=== PATIENT | female | born 1975 | race Caucasian/White ===

== ENCOUNTER 2016-09-06 08:00 | Outpatient (CLI) | payer MEDICARE, MEDICAID | END 2016-09-06 08:01 | disposition home or self-care (01) | DX: E78.5 Hyperlipidemia, unspecified (principal); E11.9 Type 2 diabetes mellitus without complications ==

== ENCOUNTER 2016-10-18 14:18 | Outpatient (CLI) | payer MEDICARE, MEDICAID | END 2016-10-18 14:19 | disposition home or self-care (01) | DX: Z11.3 Encounter for screening for infections with a predominantly sexual mode of transmission (principal) | CPT/HCPCS: 36415; 86780; 87340; G0475 ==

== ENCOUNTER 2016-12-26 14:17 | Outpatient (CLI) | payer MEDICARE, MEDICAID | END 2016-12-26 23:59 | disposition home or self-care (01) | DX: E11.65 Type 2 diabetes mellitus with hyperglycemia (principal) ==

== ENCOUNTER 2017-03-03 11:52 | Outpatient (CLI) | payer MEDICARE, MEDICAID ==
--- NOTE | 2017-03-06 18:01 | Mammography Report ---
DIGITAL SCREENING MAMMOGRAM: 03/03/2017 CLINICAL INDICATION: A 41-year-old for screening. COMPARISON: 01/2008 TECHNIQUE: Routine CC and MLO projections were obtained of the breasts. FINDINGS: Scattered fibroglandular tissue is present within the breasts. There are no dominant mass es, suspicious microcalcifications, or secondary signs of malignancy. In comparison to the previous studies, there are no significant changes. ASSESSMENT: NO MAMMOGRAPHIC EVIDENCE OF MALIGNANCY. NO SIGNIFICANT INTERVAL CHANGES. RECOMMENDATION: Screening mammography is recommended annually. BIRADS category 1 - negative. STANDARD QUALIFYING STATEMENTS 1. This examination was reviewed with the aid of Computed-Aided Detection (CAD). 2. A negative or benign imaging report should not delay biopsy if clinically suspicious findings are present. Consider surgical consultation if warranted. More than 5% of cancers are not identified b y imaging. 3. Dense breasts may obscure an underlying neoplasm. JOB #: [id number] EXT JOB #:[id number]
== END 2017-03-03 11:53 | disposition home or self-care (01) ==
LOC: DI.N 11:52
PROVIDERS: ATTEND Nurse Practitioner Gerontology
DX: Z12.31 Encounter for screening mammogram for malignant neoplasm of breast (principal)
CPT/HCPCS: 77067

== ENCOUNTER 2017-04-05 14:04 | Outpatient (CLI) | payer MEDICARE, MEDICAID | END 2017-04-05 14:05 | LOC: LAB.R 14:04 | PROVIDERS: ATTEND Obstetrics & Gynecology | DX: B37.3 Candidiasis of vulva and vagina (principal) | CPT/HCPCS: 87480; 87491; 87510; 87591; 87660 ==

== ENCOUNTER 2017-04-17 09:46 | Outpatient (CLI) | payer MEDICARE, MEDICAID ==
[2017-04-17 17:45] LABS: HEMOGLOBIN A1C 0.98 g/dL
== END 2017-04-17 09:47 ==
LOC: LAB.N 09:46
PROVIDERS: ATTEND Nurse Practitioner Gerontology
DX: E11.65 Type 2 diabetes mellitus with hyperglycemia (principal)
CPT/HCPCS: 36415; 83036

== ENCOUNTER 2017-12-28 08:00 | Outpatient (CLI) | payer MEDICARE, MEDICAID ==
[2017-12-28 19:53] LABS: HB2 TOTAL 15.4 g/dL; HEMOGLOBIN A1C 1.12 g/dL; HEMOGLOBIN A1C % 8.8 % (4.6-6.2)
== END 2017-12-28 08:01 | disposition home or self-care (01) ==
LOC: LAB.N 08:00
PROVIDERS: ATTEND Obstetrics & Gynecology
DX: Z13.1 Encounter for screening for diabetes mellitus (principal); E11.9 Type 2 diabetes mellitus without complications
CPT/HCPCS: 36415; 83036

== ENCOUNTER 2018-03-23 14:53 | Outpatient (CLI) | payer MEDICARE, MEDICAID ==
--- NOTE | 2018-03-23 15:34 | XRAY Report ---
Procedure Date: 03/23/2018 Accession Number: [id number] / [id number] Procedure: XRN - Lumbar Spine 2 View CPT Code: FULL RESULT: EXAM: Lumbar Spine 2 View DATE: 03/23/2018 3:06 PM CLINICAL HISTORY: LEG PAIN COMPARISON: 08/04/2016. TECHNIQUE: 2 views. FINDINGS: Alignment: Normal. No spondylolisthesis or scoliosis. Bones: Five [id number]-[id number] lumbar vertebral bodies are present. No fractures or bone lesions. Mild endplate spurring. Disks: Mild degenerative changes with loss of disc space height, similar to 2016. Facets: No degenerative changes. Sacroiliac Joints: Unremarkable. Soft Tissues: Normal. The visualized bowel gas pattern is normal. IMPRESSION: Mild degenerative changes, similar to 2016. RADIA
== END 2018-03-23 14:54 | disposition home or self-care (01) ==
LOC: DI.N 14:53
PROVIDERS: ATTEND Nurse Practitioner
DX: M51.36 Other intervertebral disc degeneration, lumbar region (principal)
CPT/HCPCS: 72100

== ENCOUNTER 2019-08-03 11:30 | Outpatient (CLI) | payer MEDICARE ==
--- NOTE | 2019-08-05 10:53 | Ultrasound Report ---
Reason: CYSTOCELE W/INCOMPLETE UTERINE PROLAPSE Procedure Date: 08/03/2019 Accession Number: [id number] / [id number] Procedure: US - Pelvic w/Transvaginal CPT Code: Final Report FULL RESULT: EXAM: PELVIC ULTRASOUND EXAM DATE: 08/03/2019 12:16 PM. CLINICAL HISTORY: CYSTOCELE W/INCOMPLETE UTERINE PROLAPSE. 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 TECHNIQUE: Realtime transabdominal pelvic scan performed to identify the uterus and adnexa and as an overview of other pelvic structures, followed by transvaginal scan to provide greater detail of the uterus and adnexa, with static image documentation. FINDINGS: Uterus: 8.8 x 4.5 x 5.9 cm, volume 124 cc. Anteverted position. Normal overall size and echotexture. Masses: None. Probable anterior lower uterine segment section scar. Endometrium: 2 mm. Normal. Cervix: Probable small nabothian cysts. Right Ovary: 1.5 x 3.1 x 1.5 cm, volume 3.5 cc. Normal echotexture and blood flow. Left Ovary: 2.2 x 1.1 x 2.2 cm, volume 2.6 cc. Normal echotexture and blood flow. Free Fluid: Trace free pelvic fluid may be physiologic. Other: None. IMPRESSION: 1. Unremarkable uterus and ovaries. 2. Trace free pelvic fluid may be physiologic. RADIA
== END 2019-08-03 11:31 | disposition home or self-care (01) ==
LOC: DI 11:30
PROVIDERS: ATTEND Obstetrics & Gynecology
DX: N81.2 Incomplete uterovaginal prolapse (principal); N91.5 Oligomenorrhea, unspecified
CPT/HCPCS: 76830; 76856

== ENCOUNTER 2019-09-23 12:09 | Outpatient (CLI) | payer MEDICARE, MEDICAID ==
[2019-09-23 12:25] LABS: BASOPHILS % (AUTO) 0.7 %; EOSINOPHILS # (AUTO) 0.2 10^3/uL (0.0-0.7); HGB - HEMOGLOBIN 13.5 g/dL (12.0-16.0); LYMPHOCYTES # (AUTO) 1.9 10^3/uL (1.5-3.5); MEAN CORPUSCULAR HEMOGLOBIN 26.9 pg (27.0-31.0); MEAN CORPUSCULAR HGB CONC 32.1 g/dL (32.0-36.0); MEAN CORPUSCULAR VOLUME 83.8 fL (81.0-99.0); MEAN PLATELET VOLUME 9.3 fL (7.9-10.8); MONOCYTES # (AUTO) 0.4 10^3/uL (0.0-1.0); MONOCYTES % (AUTO) 6.1 %; NEUTROPHILS # (AUTO) 3.6 10^3/uL (1.5-6.6); NEUTROPHILS % (AUTO) 58.5 %; PLT - PLATELET COUNT 246 10^3/uL (130-450); RED BLOOD COUNT 5.01 10^6/uL (4.20-5.40); RED CELL DISTRIBUTION WIDTH 13.4 % (12.0-15.0); WHITE BLOOD COUNT 6.1 x10^3/uL (4.8-10.8)
[2019-09-23 12:47] LABS: ALBUMIN 4.1 g/dL (3.2-5.5); ALBUMIN/GLOBULIN RATIO 1.4 (1.0-2.2); BILIRUBIN,TOTAL 0.6 mg/dL (0.2-1.0); CALCIUM 8.8 mg/dL (8.5-10.3); CREATININE 0.7 mg/dL (0.4-1.0)
== END 2019-09-23 12:10 | disposition home or self-care (01) ==
LOC: LAB 12:09
PROVIDERS: ATTEND Obstetrics & Gynecology
DX: Z01.812 Encounter for preprocedural laboratory examination (principal); N91.5 Oligomenorrhea, unspecified; N81.2 Incomplete uterovaginal prolapse; E11.9 Type 2 diabetes mellitus without complications
CPT/HCPCS: 36415; 80053; 85025

== ENCOUNTER 2019-09-25 07:05 | Day surgery (SDC) | payer MEDICARE, MEDICAID ==
--- NOTE | 2019-09-23 11:58 | CONSULTATION NOTE ---
Consultation Report: Evaluated patient in preop clinic. Patient to have Hysterectomy with AP repair. She has a history of asthma, GERD, morbid obesity (BMI 44), borderline sleep apnea, untreated and DM 2. Her most recent A1C was 7 which is down from 8.5. Her asthma is well controlled on Breo. Discussed with patient her risk may be higher post-op due to untreated sleep apnea. If needed, we will treat her with CPAP post op if apnea becomes an issue. Otherwise, it is safe to proceed with surgery on Monday as planned. No anesthetic concerns.
[~2019-09-25 07:05] MED LIST: ACETAMINOPHEN 1,000 MG/100 ML 100 ML IV ONE; CELECOXIB 100 MG CAPSULE PO ONE; GABAPENTIN 400 MG CAPSULE ONE; LACTATED RINGERS 1,000 ML IV ONE
[2019-09-25 07:28] LABS: HCG UR QUAL NEGATIVE
[2019-09-25] MEDS ORDERED: VASOPRESSIN 20 UNIT/ML VIAL ONE (07:32)
[2019-09-25] MEDS ORDERED: LIDOCAINE 1%-EPI 1:100000 20 ML MDV ONE (07:32)
[2019-09-25] MEDS ORDERED: METHYLENE BLUE 0.5% 50 MG/10 ML AMPULE ONE (07:32)
[2019-09-25] MEDS ORDERED: ESTROGENS, CONJUGATED CREAM 30 GM TUBE ONE (07:35)
[2019-09-25] MEDS ORDERED: ceFAZolin 3 GM in SODIUM CHLORIDE 0.9% 100ML 100 ML IV ONE (08:00)
--- NOTE | 2019-09-25 08:03 | ANESTHESIA ---
Pre-Anesthesia VS, & Labs - Diagnosis Cystocele w/ incomplete uterine prolapse - Procedure Total vaginal hysterectomy Vital Signs: Temp Pulse Resp BP Pulse Ox 36.5 C 77 16 136/81 H 96 09/25/19 07:17 09/25/19 07:17 09/25/19 07:17 09/25/19 07:17 09/25/19 07:17 Height 5 ft 6 in Weight (kg) 121 kg Body Mass Index 44.3 - NPO >8 hours - Is Patient ?: Yes, No - Lab Results Current Lab Results: Laboratory Tests 09/25/19 07:30: POC Whole Bld Glucose 113 H Lab results reviewed: Yes Home Medications and Allergies Active Medications Cefazolin Sodium 3 gm/ Sodium (Chloride) 100 mls @ 200 mls/hr IV ONCE ONE Stop: 09/25/19 08:29 Albuterol [Proventil Hfa] 1 puffs INH Q4-6H PRN 04/16/13 Minocycline [Minocycline HCl] 100 mg PO DAILY 04/16/13 Atorvastatin Calcium [Lipitor] 20 mg PO QPM 12/06/13 Cholecalciferol (Vitamin D3) [Vitamin D] 5,000 tab PO DAILY 02/23/15 Gabapentin [Gralise] 300 mg PO DAILY 02/23/15 metFORMIN [Glucophage] 1,000 mg ORAL BID 02/23/15 Naproxen 500 mg PO BID 06/02/16 Aspirin [Aspirin EC] 81 mg PO DAILY 07/04/19 Empagliflozin [Jardiance] 25 mg PO DAILY 07/04/19 Fluticasone/Vilanterol [Breo Ellipta 100-25 Mcg INH] 1 each IH DAILY 07/04/19 Insulin Glargine/Lixisenatide [Soliqua 100 Unit-33 Mcg/ml Pen] 68 unit SUBQ DAILY 07/04/19 Lisinopril [Zestril] 10 mg PO DAILY 07/04/19 Pantoprazole [Protonix] 40 mg PO DAILY 07/04/19 Allergies/Adverse Reactions: Allergies Allergy/AdvReac Type Severity Reaction Status Date / Time latex Allergy Unknown Rash Verified 09/23/19 11:51 sitagliptin [From Januvia] Allergy Unknown Verified 09/23/19 11:51 Anes History & Medical History - Anesthetic History Anesthesia Complications: reports: No previous complications Family history of Anesthesia Complications: Denies Family history of Malignant Hyperthermia: Denies - Medical History Cardiovascular: reports: High cholesterol Pulmonary: reports: Asthma, Other Gastrointestinal: reports: GERD Urinary: reports: None Neuro: reports: None Musculoskeletal: reports: Fibromyalgia, Chronic back pain Endocrine/Autoimmune: reports: Type 2 diabetes Blood Disorders: reports: None Skin: reports: Eczema, Rosacea Smoking Status: Former smoker Psychosocial: reports: No issues indicated - Surgical History General: Colonoscopy Gynecologic: section, Tubal ligation Exam General: Alert Dental: WNL Mouth Opening: Greater than 4 Fingerbreadths Neck Mobility: Normal Mallampati classification: I Thyromental Distance: greater than 6 cm Respiratory: Lungs clear Cardiovascular: Regular rate Neurological: Normal speech Mental/Cognitive Status: Alert/Oriented X3 Cognitive Status: Within normal limits Plan Anesthesia Type: General Consent for Procedure(s) Verified and Reviewed: Yes Code Status: Attempt Resuscitation ASA classification: 2-Mild systemic disease Is this case an emergency?: No
[2019-09-25] MEDS ORDERED: SCOPOLAMINE PATCH TOP ONE (08:24)
[2019-09-25] MEDS ORDERED: ROCURONIUM 50 MG/5 ML VIAL IVP ONE (08:57)
[2019-09-25] MEDS ORDERED: fentaNYL 100 MCG/2 ML VIAL IVP ONE (08:57)
[2019-09-25] MEDS ORDERED: PROPOFOL 200 MG/20 ML VIAL IVP ONE (08:57)
[2019-09-25] MEDS ORDERED: ESMOLOL 100 MG/10 ML VIAL IVP ONE (08:57)
[2019-09-25] MEDS ORDERED: HYDROmorphone 1 MG/ML CARPUJECT IVP ONE (08:57)
[2019-09-25] MEDS ORDERED: MIDAZOLAM 2 MG/2 ML VIAL IVP ONE (08:57)
[2019-09-25] MEDS ORDERED: ONDANSETRON 4 MG/2 ML VIAL IVP ONE (08:57)
[2019-09-25] MEDS ORDERED: fentaNYL 250 MCG/5 ML VIAL IVP ONE (08:57)
[2019-09-25] MEDS ORDERED: KETOROLAC 30 MG/ML VIAL IVP ONE ×2 (08:57)
[2019-09-25] MEDS ORDERED: ACETAMINOPHEN 1,000 MG/100 ML 100 ML IV ONE (08:57)
[2019-09-25] MEDS ORDERED: LACTATED RINGERS 1,000 ML IV ONE (11:36)
[2019-09-25] MEDS ORDERED: ONDANSETRON 4 MG/2 ML VIAL ONE (13:23)
[2019-09-25] MEDS ORDERED: ONDANSETRON 4 MG/2 ML VIAL IVP PRN (13:39)
[2019-09-25] MEDS ORDERED: SIMETHICONE CHEW 80 MG TABLET PO PRN (13:39)
[2019-09-25] MEDS ORDERED: ONDANSETRON ODT 4 MG TABLET TL PRN (13:39)
[2019-09-25] MEDS ORDERED: SODIUM CHLORIDE FLUSH 0.9% 10 ML SYRINGE IVP PRN (13:39)
[2019-09-25] MEDS ORDERED: oxyCODONE 5 MG TABLET PO PRN (13:39)
[2019-09-25] MEDS ORDERED: diphenhydrAMINE 25 MG CAPSULE PO PRN (13:39)
[2019-09-25] MEDS: PROMETHAZINE 25 MG/1 ML VIAL ONE ×2 (13:46→14:10)
--- NOTE | 2019-09-25 13:54 | OPERATIVE REPORT ---
Operative Report - General Planned Procedure: Total vaginal hysterectomy, bilateral salingectomy, anterior, posterior repair, perineoprrhaphy Pre-Op Diagnosis: Stage III rectocele/cystocele, Stage II uterine prolapse, T2DM, BMI > 40 Procedure Performed: Total vaginal hysterectomy with bilateral salpingectomy anterior, posterior repair, perineorrhaphy Post Op Diagnosis: Same - Procedure Note Primary Surgeon: Bette Godoy MD Secondary Surgeon: Caty Marin MD Anesthesia Provider: Lia Zarate CRNA Anesthesia Technique: General ET tube Pathology: uterus and bilateral fallopian tubes IV Fluids (mL): 1,500 Estimated Blood Loss (mL): 150 Urine Output (mL): 500 Indications: Patient is a 43 yo with pelvic floor prolapse here for preop evaluation for TVH/AP repair. Patient was last seen in clinic on . She has ongoing issues with Stage III-IV prolapse, mainly rectocele. Affects her ability to stool and she has to splint. Difficulty sitting due to externalized prolapse. Has a gym membership but uncomfortable working out because of externalized prolapse. Had poor glucose control at first visit on 04/05/19 but has been working on euglycemia to improve surgical candidacy. Rpeorts HbA1c is 7.0%, which was the goal. Had benign EMB. Wants to move forward with definitive management Aware of risk factors for failure. Feels she cannot exercise because her prolapse is so severe and as a result, weight loss efforts are impeded. Has made great strides with behavioral change to control glucose intolerance and has lost more than 5# in the last month. Findings: Stage III rectocele and enterocele, and Stage II uterine prolapse, and Stage III cystocele Complications: none - Other Other Information/Narrative: Consent was again confirmed. The patient was brought to the OR and underweight general anesthesia. She was placed in dorsal lithotomy with legs supported in yellowfin stirrups. Bimanual exam was performed. She was then prepared and draped in the usual sterile fashion. Johnson catheter was in place and backfilled with 30 cc of dilute methyline blue and clamped. SCDs were confirmed to be in place and operating. A surgical time out was performed. Administration of 3g IV cefazolin was confirmed. A weighted speculum was placed in the posterior vaginal vault. The cervix was grasped with a a double toothed tenaculum clamp on both its anterior and posterior lips. A total of 30 cc of 20mg vasopressin/100 cc was injected in a circumferential direction around the cervix. With downward traction, we made a circumferential incision of the vaginal mucosa with the bovie cautery. This allowed dissection and entrance into the anterior space. The posterior cul-de-s ac was entered sharply in the same manner. A long necked weighted speculum was then placed in the vagina through the posterior space. The uterosacral ligaments were clamped with Roblse clamps and ligated with #0 Vicryl suture bilaterally. The cervicovesical space was then created by both blunt and sharp dissection. At no point was there spillage of methylene blue. A moistened sponge stick was pl aced in the posterior cul de sac to retract the bowel and patient was placed in Trendelenburg position. A laparoscopic Ligasure bipolar device was then used to seal and ligate each pedicle. The uterosacral ligaments were suture ligated as above. The cardinal ligaments, uterine vessels, broad ligaments, and utero-ovarian pedicles were sealed and ligated with the Ligasure device. The tubes and ovaries were visualized on either side. The tubes were transected from the uterine body and the uterine body was removed. The fallopian tubes were then grasped and elevated with [place] clamps. The underlying mesosalpinx was sealed and transected in order to remove the fallopian tubes bilaterally. Ovaries were inspected as with findings noted above. We then removed the weighted duckbill speculum and placed a regular speculum in the vaginal vault and visualized the entire area. We inspected for hemostasis, and this was secured. The peritoneum was closed with 2-0 Vicryl with a running suture. Attention was then turn to the anterior repair. Allis clamps were placed at the corners of the vaginal cuff and a this Allis clamps was placed about 1.5 below the urethra meatus and below the urethrovesical junction. Vasopressin was injected under the vaginal mucosa. An incision was made along the midline from the anterior aspect of the vaginal cuff to the Allis clamp about 1.5 cm from urethra. The vaginal mucosa was dissected off the vesicovaginal fascia, starting from the midline vaginal incision and moving laterally in both directions while progressing along the length of the vaginal vault. The cystocele was reduced via placement of figure of 8 sutures placed at the lateral aspect of the fascia using 2-0 Vicryl, fixing the suture at the midline. This plication was repeated in a series along the anterior aspect of the vagina until the cystocele was reduced. The redundant vaginal mucosa was then trimmed and then joined at the midline using 2-0 Vicryl in a running locked suture to the anterior aspect of the vaginal cuff. Attention was then turned to the posterior repair. An incision was made mucocutaneous junction at the posterior vaginal fourchette was marked for the initial transverse incision. Vasopressin was injected under the vaginal mucosa from the edge of mucocutaneous junction. A superficial incision was made lengthwise down the vaginal mucosa, starting at the midline from the transverse incision to the peak of the rectocele. The edges of the vaginal epithelium were grasped with Allis clamps and mucosa was dissected off the rectovaginal fascia. The distal rectocele was reduced with the placement of serial figure of 8 sutures placed at the lateral edges of the fascia and fixed at the midline. The dissection was extended along the vaginal vault to meet the edge of the posterior vaginal cuff. The peritoneum was closed with a purse string suture while an enterocele was retracted out of the vaginal vault with a moistened sponge stick. The sponge stick was removed and the proximal edge of the rectocele was further reduced with placement of lateral figure of of 8 sutures fixed at the midline until both the rectocele and enteocele were fully reduced. The redundant vaginal mucosa was trimmed and the edges of the vaginal mucosa overlying the rectovaginal fascia were re-apposed with a running locked suture using 2-0 Vicryl. The perineorraphy was performed. The triangle of denuded perineum, with the base incorporating the transverse incision in the mucocutaneous margin of the posterior fourchette and the peak about 1 cm above the anus, was closed with a crown stitch using 2-0 Vicryl. The overlying perineal epithelium was closed with a running subcuticular suture using the same suture. The uterosacral ligaments were then fixed to the anterior and posterior vaginal cuff margins to aid in vaginal support. The vaginal cuff was then closed with interrupted figure of 8 sutures using 0-Vicryl. Hemostasis was excellent. The vaginal vault was cleared of debris. Rectal exam was performed and no sutures were palpated in the rectum. The sponge count was correct times 2 at this time. A Johnson catheter was then unclamped. Vaginal packing soaked in estrogen cream was placed in the vagina. The patients procedure was terminated. She was sent to the Recovery Room in good condition. Dr. Marin assisted with retraction, assistance with suturing, and sharing of surgical insight.
[2019-09-25] MEDS ORDERED: GABAPENTIN 300 MG CAPSULE PO SCH (14:00)
[2019-09-25] MEDS: ACETAMINOPHEN 500 MG TABLET PO SCH ×2 (14:49→21:36)
[2019-09-25 15:42] LABS: CREATININE 0.9 mg/dL (0.4-1.0)
[2019-09-25] MEDS: LACTATED RINGERS 1,000 ML IV SCH ×2 (16:57→20:55)
[2019-09-25] MEDS: INSULIN ASPART 300 UNIT/3 ML PEN SUBQ SCH ×2 (17:30→21:12)
[2019-09-25] MEDS: SODIUM CHLORIDE FLUSH 0.9% 10 ML SYRINGE IVP SCH (17:30)
[2019-09-25] MEDS ORDERED: ALBUTEROL NEB 2.5 MG/3 ML INH PRN (18:36)
[2019-09-25] MEDS: DOCUSATE SODIUM 100 MG CAPSULE PO SCH (21:36)
[2019-09-25] MEDS: GABAPENTIN 300 MG CAPSULE PO SCH (21:37)
[2019-09-26] MEDS: SODIUM CHLORIDE FLUSH 0.9% 10 ML SYRINGE IVP SCH ×2 (00:29→08:38)
[2019-09-26] MEDS: KETOROLAC 30 MG/ML VIAL IVP SCH ×2 (03:12→08:38)
[2019-09-26 05:42] LABS: BASOPHILS % (AUTO) 0.5 %; EOSINOPHILS # (AUTO) 0.1 10^3/uL (0.0-0.7); EOSINOPHILS % (AUTO) 0.8 %; HGB - HEMOGLOBIN 10.7 g/dL (12.0-16.0); LYMPHOCYTES # (AUTO) 1.4 10^3/uL (1.5-3.5); LYMPHOCYTES % (AUTO) 16.2 %; MEAN CORPUSCULAR HGB CONC 30.4 g/dL (32.0-36.0); MEAN CORPUSCULAR VOLUME 88.9 fL (81.0-99.0); MEAN PLATELET VOLUME 9.6 fL (7.9-10.8); MONOCYTES # (AUTO) 0.7 10^3/uL (0.0-1.0); MONOCYTES % (AUTO) 8.2 %; NEUTROPHILS # (AUTO) 6.2 10^3/uL (1.5-6.6); NEUTROPHILS % (AUTO) 73.9 %; PLT - PLATELET COUNT 196 10^3/uL (130-450); RED BLOOD COUNT 3.96 10^6/uL (4.20-5.40); RED CELL DISTRIBUTION WIDTH 13.6 % (12.0-15.0); WHITE BLOOD COUNT 8.3 x10^3/uL (4.8-10.8)
[2019-09-26] MEDS: LACTATED RINGERS 1,000 ML IV SCH (05:45)
[2019-09-26] MEDS: ACETAMINOPHEN 500 MG TABLET PO SCH ×2 (05:46→13:08)
[2019-09-26] MEDS: GABAPENTIN 300 MG CAPSULE PO SCH ×2 (05:47→13:12)
[2019-09-26 05:49] LABS: CREATININE 0.8 mg/dL (0.4-1.0)
[2019-09-26] MEDS: INSULIN ASPART 300 UNIT/3 ML PEN SUBQ SCH ×2 (07:51→13:09)
[2019-09-26] MEDS: DOCUSATE SODIUM 100 MG CAPSULE PO SCH (08:38)
[2019-09-26] MEDS ORDERED: ENOXAPARIN 40 MG/0.4 ML SYRINGE SUBQ SCH (09:00)
[2019-09-26] MEDS ORDERED: MAGNESIUM HYDROXIDE 2,400 MG/30 ML UDC PO PRN (13:45)
[2019-09-26] MEDS ORDERED: PANTOPRAZOLE 40 MG TABLET PO SCH (14:00)
[2019-09-26] MEDS ORDERED: DOCUSATE SODIUM 100 MG CAPSULE PO SCH (14:00)
[2019-09-26 15:49] VITALS: BP 129/60
--- NOTE | 2019-09-26 17:06 | PROVIDER PROGRESS NOTE ---
Subjective - Prog Note Date Prog Note Date: 09/26/19 Prog Note Time: 09:00 - Subjective Pt reports feeling: Improved Subjective: Patient is doing well. Up and ambularing, tolerating po, pain well managed. Has had forde catheter removed this am. Has not yet voided. Vaginal packing removed. Vaginal bleeding moderate to heavy after removal. Reports some numbness in her left hand, no change in function in hand Objective - Vital Signs/Intake & Output Vital Signs: Vital Signs x48h Temp Pulse Resp BP BP BP Pulse Ox 09/26/19 15:47 98.6 F 64 20 129/60 09/26/19 13:35 97.3 F L 83 18 145/78 H 100 09/26/19 09:38 102/45 L 132/61 H Intake & Output: Intake & Output 09/23/19 09/24/19 09/25/19 09/26/19 23:59 23:59 23:59 23:59 Intake Total 2305.000 2426.667 Output Total 1400 1450 Balance 905.000 976.667 - Objective General Appearance: positive: No acute distress Respiratory: positive: Chest non-tender, No respiratory distress, Breath sounds nml Cardiovascular: positive: Regular rate & rhythm Abdomen: positive: Non-tender, Other (non-distended) Skin: positive: Color nml Extremities: positive: Other (Normal strength, 5/5 in hands bilaterally) Neurologic/Psychiatric: positive: Oriented x3 - Lab Results Fish Bones: 09/26/19 05:20 09/26/19 05:20 Other Labs: Lab Results x24hrs 09/26/19 09/26/19 09/26/19 Range/Units 16:48 11:16 07:41 WBC (4.8-10.8) x10^3/uL RBC (4.20-5.40) 10^6/uL Hgb (12.0-16.0) g/dL Hct (37.0-47.0) % MCV (81.0-99.0) fL MCH (27.0-31.0) pg MCHC (32.0-36.0) g/dL RDW (12.0-15.0) % Plt Count (130-450) 10^3/uL MPV (7.9-10.8) fL Neut # (Auto) (1.5-6.6) 10^3/uL Lymph # (Auto) (1.5-3.5) 10^3/uL [place] # (Auto) (0.0-1.0) 10^3/uL Eos # (Auto) (0.0-0.7) 10^3/uL Baso # (Auto) (0.0-0.1) 10^3/uL Absolute Nucleated RBC x10^3/uL Nucleated RBC % /100WBC Creatinine (0.4-1.0) mg/dL Estimated GFR (MDRD) (>89) POC Whole Bld Glucose 111 H 188 H 96 (70 - 100) mg/dL 09/26/19 09/26/19 09/25/19 Range/Units 05:20 05:20 21:06 WBC 8.3 (4.8-10.8) x10^3/uL RBC 3.96 L (4.20-5.40) 10^6/uL Hgb 10.7 L (12.0-16.0) g/dL Hct 35.2 L (37.0-47.0) % MCV 88.9 (81.0-99.0) fL MCH 27.0 (27.0-31.0) pg MCHC 30.4 L (32.0-36.0) g/dL RDW 13.6 (12.0-15.0) % Plt Count 196 (130-450) 10^3/uL MPV 9.6 (7.9-10.8) fL Neut # (Auto) 6.2 (1.5-6.6) 10^3/uL Lymph # (Auto) 1.4 L (1.5-3.5) 10^3/uL [place] # (Auto) 0.7 (0.0-1.0) 10^3/uL Eos # (Auto) 0.1 (0.0-0.7) 10^3/uL Baso # (Auto) 0.0 (0.0-0.1) 10^3/uL Absolute Nucleated RBC 0.00 x10^3/uL Nucleated RBC % 0.0 /100WBC Creatinine 0.8 (0.4-1.0) mg/dL Estimated GFR (MDRD) 78 L (>89) POC Whole Bld Glucose 91 (70 - 100) mg/dL 09/25/19 09/25/19 Range/Units 19:02 17:13 WBC (4.8-10.8) x10^3/uL RBC (4.20-5.40) 10^6/uL Hgb (12.0-16.0) g/dL Hct (37.0-47.0) % MCV (81.0-99.0) fL MCH (27.0-31.0) pg MCHC (32.0-36.0) g/dL RDW (12.0-15.0) % Plt Count (130-450) 10^3/uL MPV (7.9-10.8) fL Neut # (Auto) (1.5-6.6) 10^3/uL Lymph # (Auto) (1.5-3.5) 10^3/uL [place] # (Auto) (0.0-1.0) 10^3/uL Eos # (Auto) (0.0-0.7) 10^3/uL Baso # (Auto) (0.0-0.1) 10^3/uL Absolute Nucleated RBC x10^3/uL Nucleated RBC % /100WBC Creatinine (0.4-1.0) mg/dL Estimated GFR (MDRD) (>89) POC Whole Bld Glucose 86 103 H (70 - 100) mg/dL Assessment/Plan - Problem List (1) History of vaginal hysterectomy Impression: POD#1 s/p TVH and AP repair Has not yet voided and vaginal bleeding is heavier than I am comfortable with for discharge Cont to monitor through the am for continued bleeding and voiding Otherwise meeting goals for discharge ETA 16:30: Has had several voids and minimal bleeding all day Discharged to home with routine discharge instructions
--- NOTE | 2019-09-26 17:13 | DISCHARGE SUMMARY ---
"Discharge Summary Admit Date: 09/25/19 Discharge Date: 09/26/19 Discharging Provider: Jayne Code Status: Attempt Resuscitation Condition at Discharge: Good Discharge Facility Name: [facility] History of Present Illness: 43 yo multiparous female with Stage III pelvic organ prolapse who presents for definitive surgical management. - CONSULTS | PROCEDURES Procedures: Total vaginal hysterectomy with bilateral salpingectomy, anterior and posterior repair, and perineorraphy. - HOSPITAL COURSE Hospital Course: Patient was admitted on 09/25/2019 to undergo the aforementioned procedure. The procedure was completed without complication and was well tolerated. She was observed overnight and by POD#1, was up and ambulating, tolerating po, and pain was well managed. She was able to void by midday and vaginal bleeding was limited to pink discharge. She was discharged to home. - ALLERGIES Allergies/Adverse Reactions: Allergies Allergy/AdvReac Type Severity Reaction Status Date / Time latex Allergy Unknown Rash Verified 09/23/19 11:51 sitagliptin [From Januvia] Allergy Unknown Verified 09/23/19 11:51 - MEDICATIONS Home Medications: Ambulatory Orders Medication Instructions Recorded Confirmed Albuterol [Proventil Hfa] 1 puffs INH Q4-6H PRN 04/16/13 09/25/19 Minocycline [Minocycline HCl] 100 mg PO DAILY 04/16/13 09/25/19 Atorvastatin Calcium [Lipitor] 20 mg PO QPM 12/06/13 09/25/19 Cholecalciferol (Vitamin D3) 5,000 tab PO DAILY 02/23/15 09/25/19 [Vitamin D] Gabapentin [Gralise] 300 mg PO DAILY 02/23/15 09/25/19 metFORMIN [Glucophage] 1,000 mg ORAL BID 02/23/15 09/25/19 Naproxen 500 mg PO BID 06/02/16 09/25/19 Aspirin [Aspirin EC] 81 mg PO DAILY 07/04/19 09/25/19 Empagliflozin [Jardiance] 25 mg PO DAILY 07/04/19 09/25/19 Fluticasone/Vilanterol [Breo 1 each IH DAILY 07/04/19 09/25/19 Ellipta 100-25 Mcg INH] Insulin Glargine/Lixisenatide 68 unit SUBQ DAILY 07/04/19 09/25/19 [Soliqua 100 Unit-33 Mcg/ml Pen] Lisinopril [Zestril] 10 mg PO DAILY 07/04/19 09/25/19 Pantoprazole [Protonix] 40 mg PO DAILY 07/04/19 09/25/19 - PHYSICAL EXAM AT DISCHARGE General Appearance: positive: No acute distress Neck: positive: Nml inspection Respiratory: positive: Chest non-tender, No respiratory distress, Breath sounds nml Cardiovascular: positive: Regular rate & rhythm Abdomen: positive: Non-tender, No distention Skin: positive: Color nml Extremities: positive: Non-tender - LABS Result Diagrams: 09/26/19 05:20 09/26/19 05:20 - FOLLOW UP Follow Up: Follow up in [address] Godoy at [facility] [place] - TIME SPENT Time Spent in Discharge (Minutes): 45"
[2019-09-28] MEDS ORDERED: SCOPOLAMINE PATCH TOP PRN (13:39)
== END 2019-09-26 17:55 | disposition home or self-care (01) ==
LOC: SDS 07:05 → MS2 13:39 → SDS 09-26 17:55
PROVIDERS: ATTEND Obstetrics & Gynecology
PROC: 0JQC0ZZ Repair Pelvic Region Subcutaneous Tissue and Fascia, Open Approach (ICD-10-PCS; 2019-09-25)
PROC: 0JQC0ZZ Repair Pelvic Region Subcutaneous Tissue and Fascia, Open Approach (ICD-10-PCS; 2019-09-25)
PROC: 0WQN0ZZ Repair Female Perineum, Open Approach (ICD-10-PCS; 2019-09-25)
PROC: 0UT97ZZ Resection of Uterus, Via Natural or Artificial Opening (ICD-10-PCS; principal; 2019-09-25 08:30)
PROC: 0UT77ZZ Resection of Bilateral Fallopian Tubes, Via Natural or Artificial Opening (ICD-10-PCS; 2019-09-25 08:30)
DX: N81.3 Complete uterovaginal prolapse (principal); N81.2 Incomplete uterovaginal prolapse; N91.5 Oligomenorrhea, unspecified; N72 Inflammatory disease of cervix uteri; J45.909 Unspecified asthma, uncomplicated; K21.9 Gastro-esophageal reflux disease without esophagitis; E66.01 Morbid (severe) obesity due to excess calories; Z68.41 Body mass index [BMI] 40.0-44.9, adult; G47.30 Sleep apnea, unspecified; E11.9 Type 2 diabetes mellitus without complications; M51.17 Intervertebral disc disorders with radiculopathy, lumbosacral region; M50.90 Cervical disc disorder, unspecified, unspecified cervical region; M79.7 Fibromyalgia; E78.5 Hyperlipidemia, unspecified; Z87.891 Personal history of nicotine dependence; Z79.51 Long term (current) use of inhaled steroids; Z79.82 Long term (current) use of aspirin; Z79.4 Long term (current) use of insulin; Z86.718 Personal history of other venous thrombosis and embolism
CPT/HCPCS: 36415; 57260; 58262; 81025; 82565; 85025; A9270; J0131; J1170; J1650; J3010; J3490; J7120

== ENCOUNTER 2020-03-19 20:56 | Outpatient (CLI) | payer MEDICARE, MEDICAID ==
--- NOTE | 2020-03-20 14:47 | XRAY Report ---
PROCEDURE: Ribs w/PA Chest RT INDICATIONS: CHEST PAIN TECHNIQUE: 3 views of the right ribs were acquired, along with a single view chest. COMPARISON: None FINDINGS: Surgical changes and devices: None. Bones and chest wall: There is a minimally dislocated eighth lateral rib fracture. No suspicious bony lesions. Overlying soft tissues appear unremarkable. Lungs and pleura: No pleural effusions or pneumothorax. Lungs appear clear. Mediastinum: Mediastinal contours appear normal. Heart size is normal. IMPRESSION: Minimally displaced fifth lateral rib fracture. Reviewed by: Reny Maddox MD on 03/20/2020 2:46 PM PDT Approved by: Reny Maddox MD on 03/20/2020 2:46 PM PDT Station ID: [id number]
== END 2020-03-19 20:57 | disposition home or self-care (01) ==
LOC: DI 20:56
PROVIDERS: ATTEND Internal Medicine
DX: S22.31XA Fracture of one rib, right side, initial encounter for closed fracture (principal)

== ENCOUNTER 2020-04-20 08:31 | Outpatient (CLI) | payer MEDICARE, MEDICAID ==
--- NOTE | 2020-04-20 10:11 | DEXA Report ---
PROCEDURE: Dexa Spine and/or Hip INDICATIONS: OSTEOPENIA TECHNIQUE: Dual energy x-ray absorptiometry (DXA) was performed on a Packback System. Regions measur ed are the AP Spine, femoral neck, and if needed forearm. COMPARISON: None. FINDINGS: Lumbar Spine: Bone Mineral Density 1.353 g/cm/cm,T score 1.4, normal Left Hip: Bone Mineral Density 1.193 g/cm/cm,T score 1.5, normal Left Femoral Neck: Bone Mineral Density 1.093 g/cm/cm, T score 0.4, normal (T score greater or equal to -1.0: NORMAL) (T score from -1.1 to -2.4: OSTEOPENIA) (T score less than or equal to -2.5 to: OSTEOPOROSIS) Impression: Normal bone density. Patients with diagnosis of osteoporosis or osteopenia should have regular bone mineral density assess ment. For those eligible for Medicare, routine testing is allowed once every 2 years. Testing frequ ency can be increased for patients who have rapidly progressing disease or for those who are receivin g medical therapy to restore bone mass. Reviewed by: Karyn Leon MD, PhD on 04/20/2020 10:09 AM PDT Approved by: Karyn Leon MD, PhD on 04/20/2020 10:09 AM PDT Station ID: [id number]
== END 2020-04-20 08:32 | disposition home or self-care (01) ==
LOC: DI 08:31
PROVIDERS: ATTEND Orthopaedic Surgery
DX: S22.31XG Fracture of one rib, right side, subsequent encounter for fracture with delayed healing (principal)
CPT/HCPCS: 77080

== ENCOUNTER 2020-07-13 19:47 | Emergency (ER) | payer MEDICARE ==
--- NOTE | 2020-07-13 20:06 | ED Physician Documentation ---
PD HPI CHEST PAIN - Stated complaint Stated Complaint: CHEST PAIN - Chief complaint Chief Complaint: Cardiac - History obtained from History obtained from: Patient - Additional information Additional information: 44-year-old woman with history of fibromyalgia, hypercholesterolemia, diabetes. She has had ongoing chest pain since she broke her rib a few months ago. More recently it has been associated with a cough and the pain is more diffuse from the sternum up between the shoulder blades. She denies shortness of breath. Been going on like this for an unclear period of time, at least several days. She denies pedal edema or calf pain. Is not on any hormonal therapy. Review of Systems Constitutional: denies: Fever, Chills, Fatigue Cardiac: denies: Palpitations, Pedal edema, Calf pain Respiratory: reports: Cough. 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 : None HEENT: Chronic vision loss Psych: Depression, Anxiety, Panic attacks Musculoskeletal: Fibromyalgia, Chronic back pain Derm: Eczema, Rosacea - Past Surgical History Past Surgical History: Yes General: Colonoscopy /SEWING INSPECTOR: section, Tubal ligation - Present Medications Home Medications: Ambulatory Orders Medication Instructions Recorded Confirmed Albuterol [Proventil Hfa] 1 puffs INH Q4-6H PRN 04/16/13 09/25/19 Minocycline [Minocycline HCl] 100 mg PO DAILY 04/16/13 09/25/19 Atorvastatin Calcium [Lipitor] 20 mg PO QPM 12/06/13 09/25/19 Cholecalciferol (Vitamin D3) 5,000 tab PO DAILY 02/23/15 09/25/19 [Vitamin D] Gabapentin [Gralise] 300 mg PO DAILY 02/23/15 09/25/19 metFORMIN [Glucophage] 1,000 mg ORAL BID 02/23/15 09/25/19 Naproxen 500 mg PO BID 06/02/16 09/25/19 Aspirin [Aspirin EC] 81 mg PO DAILY 07/04/19 09/25/19 Empagliflozin [Jardiance] 25 mg PO DAILY 07/04/19 09/25/19 Fluticasone/Vilanterol [Breo 1 each IH DAILY 07/04/19 09/25/19 Ellipta 100-25 Mcg INH] Insulin Glargine/Lixisenatide 68 unit SUBQ DAILY 07/04/19 09/25/19 [Soliqua 100 Unit-33 Mcg/ml Pen] Lisinopril [Zestril] 10 mg PO DAILY 07/04/19 09/25/19 Pantoprazole [Protonix] 40 mg PO DAILY 07/04/19 09/25/19 - Allergies Allergies/Adverse Reactions: Allergies Allergy/AdvReac Type Severity Reaction Status Date / Time latex Allergy Unknown Rash Verified 07/13/20 19:55 sitagliptin [From Januvia] Allergy Unknown Verified 07/13/20 19:55 - Social History Does the pt smoke?: No Smoking Status: Former smoker Does the pt drink ETOH?: No Does the pt have substance abuse?: No - Immunizations Immunizations are current?: Yes - POLST Patient has POLST: No PD ED PE NORMAL - Vitals Vital signs reviewed: Yes - General General: Alert and oriented X 3, No acute distress - Neck Neck: Supple, no meningeal sign, No bony TTP - Cardiac Cardiac: RRR, No murmur - Respiratory Respiratory: No respiratory distress, Clear bilaterally - Abdomen Abdomen: Non tender - Extremities Extremities: No edema, No calf tenderness / cord - Neuro Neuro: Alert and oriented X 3, Normal speech Results - Vitals Vitals: Vital Signs - 24 hr 07/13/20 07/13/20 07/13/20 19:51 20:10 20:30 Temperature 36.5 C Heart Rate 77 79 Respiratory 18 15 Rate Blood Pressure 127/69 117/77 Blood Pressure 129/76 [Left] Blood Pressure 150/75 H [Right] O2 Saturation 97 98 Oxygen O2 Source Room air - EKG (time done) 1955 Rate: Rate (enter#) (80) Rhythm: NSR [place]: Normal Intervals: Normal [place] QRS: Normal Ischemia: Normal ST segments Computer interpretation: Agree with computer - Labs Labs: Laboratory Tests 07/13/20 07/13/20 07/13/20 20:25 20:25 20:25 WBC 8.0 RBC 4.89 Hgb 12.9 Hct 40.2 MCV 82.2 MCH 26.4 L MCHC 32.1 RDW 14.3 Plt Count 244 MPV 9.7 Neut # (Auto) 5.4 Lymph # (Auto) 1.9 [place] # (Auto) 0.4 Eos # (Auto) 0.2 Baso # (Auto) 0.0 Absolute Nucleated RBC 0.00 Nucleated RBC % 0.0 Sodium 134 L Potassium 3.6 Chloride 98 L Carbon Dioxide 22 Anion Gap 14.0 H BUN 16 Creatinine 0.9 Estimated GFR (MDRD) 68 L Glucose 246 H Calcium 8.7 Total Bilirubin 0.5 AST 23 ALT 43 Alkaline Phosphatase 95 Troponin I High Sens < 2.3 L Total Protein 6.6 L Albumin 3.8 Globulin 2.8 Albumin/Globulin Ratio 1.4 Lipase 36 - Rads (name of study) 1v CXR Radiology: EMP read contemporaneously (NAD) PD MEDICAL DECISION MAKING - ED course ED course: I considered pulmonary embolism in this patient. Clinically the pretest probability of pulmonary embolism is less than 15%. I applied to the PERC rules as follows: The patient's age is under 50, heart rate less than 100, oxygen saturation greater than 94%, the patient does not have a history of DVT or PE. Patient has no recent trauma or surgery. The patient has no hemoptysis. The patient is not on exogenous estrogens. The patient does not have clinical signs suggesting DVT. As such the patient ruled out for pulmonary embolism by PERC criteria. I considered aortic dissection in this patient. The patient has a much more likely alternative diagnosis. The patient has equal radial and pedal pulses and has no neurologic symptoms. HEART score 2 Departure - Departure Disposition: 01 Home, Self Care Clinical Impression: Chest wall pain Condition: Good Record reviewed to determine appropriate education?: Yes Instructions: ED Chest Pain Atypical Unkn Cause Comments: No evidence of a serious cause of the chest pain tonight. Return for new or worsening symptoms. Follow-up with your primary care physician regardless.
--- NOTE | 2020-07-13 20:30 | XRAY Report ---
PROCEDURE: Chest 1 View X-Ray INDICATIONS: Chest Pain TECHNIQUE: One view of the chest was acquired. COMPARISON: None FINDINGS: Surgical changes and devices: None. Lungs and pleura: No pleural effusions or pneumothorax. Lungs are clear. Mediastinum: Mediastinal contours appear normal. Heart size is normal. Bones and chest wall: No suspicious bony lesions. Overlying soft tissues appear unremarkable. IMPRESSION: No acute cardiopulmonary abnormality Reviewed by: Rubin Lopez on 07/13/2020 8:29 PM [facility] Approved by: Rubin Lopez on 07/13/2020 8:29 PM [facility] Station ID: [id number]
[2020-07-13 20:36] LABS: BASOPHILS % (AUTO) 0.5 %; EOSINOPHILS # (AUTO) 0.2 10^3/uL (0.0-0.7); EOSINOPHILS % (AUTO) 2.2 %; HGB - HEMOGLOBIN 12.9 g/dL (12.0-16.0); LYMPHOCYTES # (AUTO) 1.9 10^3/uL (1.5-3.5); LYMPHOCYTES % (AUTO) 23.8 %; MEAN CORPUSCULAR HEMOGLOBIN 26.4 pg (27.0-31.0); MEAN CORPUSCULAR HGB CONC 32.1 g/dL (32.0-36.0); MEAN CORPUSCULAR VOLUME 82.2 fL (81.0-99.0); MEAN PLATELET VOLUME 9.7 fL (7.9-10.8); MONOCYTES # (AUTO) 0.4 10^3/uL (0.0-1.0); MONOCYTES % (AUTO) 5.4 %; NEUTROPHILS # (AUTO) 5.4 10^3/uL (1.5-6.6); NEUTROPHILS % (AUTO) 67.7 %; PLT - PLATELET COUNT 244 10^3/uL (130-450); RED BLOOD COUNT 4.89 10^6/uL (4.20-5.40); RED CELL DISTRIBUTION WIDTH 14.3 % (12.0-15.0)
[2020-07-13 20:49] VITALS: BP 117/77
[2020-07-13 20:51] LABS: ALBUMIN 3.8 g/dL (3.2-5.5); ALBUMIN/GLOBULIN RATIO 1.4 (1.0-2.2); BILIRUBIN,TOTAL 0.5 mg/dL (0.2-1.0); CALCIUM 8.7 mg/dL (8.5-10.3); CREATININE 0.9 mg/dL (0.4-1.0); TOTAL PROTEIN 6.6 g/dL (6.7-8.2)
== END 2020-07-13 21:20 | disposition home or self-care (01) ==
LOC: ED 19:47
DX: R07.89 Other chest pain (principal); M79.7 Fibromyalgia; E11.9 Type 2 diabetes mellitus without complications; Z79.4 Long term (current) use of insulin; Z87.891 Personal history of nicotine dependence
CPT/HCPCS: 36415; 71045; 80053; 83690; 84484; 85025; 93005; 99283; 99284

== ENCOUNTER 2021-05-22 21:40 | Emergency (ER) | payer MEDICAID, MEDICARE ==
[2021-05-22 21:57] VITALS: BP 146/83
--- NOTE | 2021-05-22 21:59 | ED Physician Documentation ---
PD HPI LOWER EXT INJURY - Stated complaint Stated Complaint: RT ANKLE PX - Chief complaint Chief Complaint: Ext Problem - History obtained from History obtained from: Patient - History of Present Illness PD HPI LOW EXT INJURY LOCATION: Right, Ankle, Calf Type of injury: Twist (she stepped in hole and felt pop in back of ankle/lower calf. Has had pain and swelling there, up to upper calf, and some of ankle. Has developed ecchymosis around base of ankle.) Timing - onset: How many weeks ago (1) Timing - duration: Weeks (1) Timing - details: Abrupt onset, Still present Worsened by: Moving, Palpating Associated symptoms: Swelling, Discolored (bruising around base of ankle the past couple of days. Increased swelling around ankle.). 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, Tubal ligation - Present Medications Home Medications: Ambulatory Orders Medication Instructions Recorded Confirmed Albuterol [Proventil Hfa] 1 puffs INH Q4-6H PRN 04/16/13 05/22/21 Minocycline [Minocycline HCl] 100 mg PO DAILY 04/16/13 05/22/21 Atorvastatin Calcium [Lipitor] 20 mg PO QPM 12/06/13 05/22/21 Cholecalciferol (Vitamin D3) 5,000 tab PO DAILY 02/23/15 05/22/21 [Vitamin D] metFORMIN [Glucophage] 1,000 mg ORAL QID 02/23/15 05/22/21 Naproxen 500 mg PO BID 06/02/16 05/22/21 Aspirin [Aspirin EC] 81 mg PO DAILY 07/04/19 05/22/21 Empagliflozin [Jardiance] 25 mg PO DAILY 07/04/19 05/22/21 Fluticasone/Vilanterol [Breo 1 each IH DAILY 07/04/19 05/22/21 Ellipta 100-25 Mcg INH] Insulin Glargine/Lixisenatide 50 unit SUBQ DAILY 07/04/19 05/22/21 [Soliqua 100 Unit-33 Mcg/ml Pen] Lisinopril [Zestril] 10 mg PO DAILY 07/04/19 05/22/21 Pantoprazole [Protonix] 40 mg PO DAILY 07/04/19 05/22/21 Ibuprofen [Motrin] 600 mg PO TID PRN #25 tab 05/22/21 methocarbamoL [Robaxin] 500 mg PO TID PRN #25 tablet 05/22/21 - Allergies Allergies/Adverse Reactions: Allergies Allergy/AdvReac Type Severity Reaction Status Date / Time latex Allergy Unknown Rash Verified 05/22/21 22:28 sitagliptin [From Januvia] Allergy Unknown Verified 05/22/21 22:28 - Social History Does the pt smoke?: No Smoking Status: Former smoker Does the pt drink ETOH?: No Does the pt have substance abuse?: No - Immunizations Immunizations are current?: Yes - POLST Patient has POLST: No PD ED PE NORMAL - Vitals Vital signs reviewed: Yes - General General: Alert and oriented X 3, Well developed/nourished - Derm Derm: Normal color, Warm and dry - Extremities Extremities: Other (swelling around the ankle and purple ecchymosis around base of ankle/posterior foot. Tender at lateral malleolus. There is tenderness and some softness upper Achilles/lower calf muscle. Tender along upper calf as well. ) - Neuro Neuro: No motor deficit, No sensory deficit Results - Vitals Vitals: Vital Signs - 24 hr 05/22/21 21:55 Temperature 36.5 C Heart Rate 88 Respiratory 18 Rate Blood Pressure 146/83 H O2 Saturation 98 Oxygen O2 Source Room air - Rads (name of study) ankle xray Radiology: Prelim report reviewed (no fractures), See rad report PD MEDICAL DECISION MAKING - ED course Complexity details: reviewed results (no fractures), considered differential (seems like upper Achilles injury, but not the main portion of the tendon. She is able to plantarflex.), d/w patient Departure - Departure Disposition: 01 Home, Self Care Clinical Impression: Strain of right calf muscle Partial tear of Achilles tendon Qualifiers: Encounter type: initial encounter Laterality: right Qualified Code(s): S86.011A - Strain of right Achilles tendon, initial encounter Condition: Stable Record reviewed to determine appropriate education?: Yes Instructions: Gastrocnemius Muscle Tear Follow-Up: Naresh Nam [Primary Care Provider] - Cosmo Barton MD [Provider Admit Priv/Credential] - Prescriptions: Ibuprofen [Motrin] 600 mg PO TID PRN #25 tab PRN Reason: Pain methocarbamoL [Robaxin] 500 mg PO TID PRN #25 tablet PRN Reason: Spasms Comments: Your ankle x-ray is normal without any signs of fracture. Clinically it does seem like a tear of the lower calf muscle just at the upper part of the Achilles tendon. Your Achilles tendon seems still connected and functioning though it hurts with use. Typically this would be treated conservatively with an ankle brace to support motion and limited activity based on comfort. It can take 4 weeks or more to heal up. You can use some anti-inflammatories and also muscle relaxant if needed for pain and spasms. Add Tylenol if needed for pain. Follow-up with your primary care in the near future with your planned appointment. Follow-up with orthopedics alternatively or if your primary care would suggest that. Discharge Date/Time: 05/22/21 23:11
[2021-05-22] MEDS ORDERED: IBUPROFEN 600 MG TABLET PO STA (22:17)
--- NOTE | 2021-05-22 23:20 | XRAY Report ---
PROCEDURE: Ankle 3 View RT INDICATIONS: ankle injury a week ago, pain and swelling TECHNIQUE: 3 views of the ankle were acquired. COMPARISON: None. FINDINGS: Bones: No fractures or dislocations. Ankle mortise is normally aligned. No suspicious bony lesions . Posterior and plantar calcaneal spurring. Dystrophic ossification seen in the distal Achilles tend on. Diffuse hindfoot and midfoot spurring. Soft tissues: No tibiotalar joint effusion. Achilles tendon appears normal. IMPRESSION: Prominent plantar and posterior calcaneal spurring. Diffuse hindfoot degenerative changes as above. No fracture. If the patient's pain or other symptoms persist, consider further evaluation with MRI. Reviewed by: Juan R Skelton MD on 05/22/2021 11:19 PM PDT Approved by: Juan R Skelton MD on 05/22/2021 11:19 PM PDT Station ID: [id number]
== END 2021-05-22 23:11 | disposition home or self-care (01) ==
LOC: ED 21:40
DX: S86.811A Strain of other muscle(s) and tendon(s) at lower leg level, right leg, initial encounter (principal); S86.011A Strain of right Achilles tendon, initial encounter; X50.0XXA Overexertion from strenuous movement or load, initial encounter; Y93.01 Activity, walking, marching and hiking; Z87.891 Personal history of nicotine dependence
CPT/HCPCS: 73610; 99283; A9270

== ENCOUNTER 2024-04-22 15:05 | Outpatient (CLI) | payer BC ==
--- NOTE | 2024-04-23 08:52 | XRAY Report ---
PROCEDURE: Chest 2V INDICATIONS: DYSPNEA TECHNIQUE: 2 views of the chest were acquired. COMPARISON: 07/19/2006. FINDINGS: Surgical changes and devices: None. Lungs and pleura: No pleural effusions or pneumothorax. Lungs are clear. Mediastinum: Mediastinal contours appear normal. Heart size is normal. Bones and chest wall: No suspicious bony lesions. Overlying soft tissues appear unremarkable. IMPRESSION: No acute cardiopulmonary process. Reviewed by: Naresh Gardner MD on 04/23/2024 8:51 AM PDT Approved by: Naresh Gardner MD on 04/23/2024 8:51 AM PDT Station ID: [id number]
== END 2024-04-22 15:06 | disposition home or self-care (01) ==
LOC: DI.N 15:05
PROVIDERS: ATTEND Physician Assistant Medical
DX: R06.00 Dyspnea, unspecified (principal)

== ENCOUNTER 2024-05-15 09:39 | Outpatient (CLI) | payer BC, MEDICAID ==
--- NOTE | 2024-05-15 15:29 | Mammography Report ---
BILATERAL DIGITAL SCREENING MAMMOGRAM 3D/2D: 05/15/2024 CLINICAL: Routine screening. Comparison is made to exam dated: 03/03/2017 mammogram - [facility]. The breasts are almost entirely fatty (category a/<25% glandular tissue). No significant masses, calcifications, or other findings are seen in either breast. There has been no significant interval change. IMPRESSION: NEGATIVE There is no mammographic evidence of malignancy. A 1 year screening mammogram is recommended. Based on the Tyrer Cuzick model (a risk assessment model) the patient's lifetime risk is 3.7% and her 10 year risk is 0.8%. According to the ACR, ACS, and NCCN guidelines, an annual breast MRI exam florencio g with mammogram is recommended if the patient's lifetime risk is 20% or greater. This exam was interpreted at Station ID: [id number]. NOTE: For mammograms, a report in lay terms will be sent to the patient. Approximately 15% of breast malignancies will not be visualized mammographically. In the management of a palpable breast mass, a negative mammogram must not discourage biopsy of a clinically suspicious lesion. Electronically Signed By: Monserrat persaud/penrad:05/15/2024 11:51:32 ACR BI-RADS Category 1: Negative 3341F PARENCHYMAL PATTERN: (F) - The breast(s) demonstrate(s) diffuse fatty replacement. BI-RADS CATEGORY: (1) - 1 RECOMMENDATION: (ANNUAL) - Recommend routine annual screening mammography. [id number] 1 year screening LATERALITY: (B)
== END 2024-05-15 09:40 | disposition home or self-care (01) ==
LOC: DI.N 09:39
PROVIDERS: ATTEND Nurse Practitioner
DX: Z12.31 Encounter for screening mammogram for malignant neoplasm of breast (principal)